=== PATIENT | female | born 1990 | race African-American/Black ===

== ENCOUNTER 2018-01-08 20:55 | Emergency (ER) | payer BC ==
[2018-01-08] MEDS: ACETAMINOPHEN 500 MG TAB PO (23:09)
[2018-01-08] MEDS: IBUPROFEN 600 MG TAB PO (23:09)
[2018-01-08] MEDS: LACTATED RINGER S IV (23:13)
[2018-01-08 23:31] LABS: ADD MAN DIFF? NO
[2018-01-08 23:40] LABS: WHITE BLOOD COUNT 5.9 10^3/ul (4.8-10.8)
[2018-01-08 23:40] LABS: ABNORMAL IP MESSAGE 1; BASOPHILS % 0.2 % (0.0-2.0); HEMATOCRIT 35.1 % (37.0-47.0); HEMOGLOBIN 11.2 g/dl (12.0-16.0); LYMPHOCYTES # 0.3 10^3/ul (0.8-2.9); LYMPHOCYTES % 5.6 % (15.0-51.0); MEAN CORPUSCULAR HEMOGLOBIN 22.7 pg (29.0-33.0); MEAN CORPUSCULAR HGB CONC 31.9 g/dl (32.0-37.0); MEAN CORPUSCULAR VOLUME 71.2 fl (82.0-101.0); MONOCYTE # 0.2 10^3/ul (0.3-0.9); MONOCYTES % 3.9 % (0.0-11.0); NEUTROPHIL # 5.3 10^3/ul (1.6-7.5); PLATELET COUNT 178 10^3/UL (140-415); RED BLOOD COUNT 4.93 10^6/ul (4.20-5.40); RED CELL DISTRIBUTION WIDTH 16.2 % (11.5-14.5)
[2018-01-08 23:50] LABS: POSITIVE DIFF @See below
[2018-01-08 23:55] LABS: INR 1.22; PROTIME 15.6 Sec (11.9-14.9); PT RATIO 1.2
[2018-01-08 23:56] LABS: PARTIAL THROMBOPLASTIN TIME 35.2 Sec (25.0-35.0)
[2018-01-08 23:58] LABS: ALANINE AMINOTRANSFERASE 29 IU/L (13-69); ALBUMIN/GLOBULIN RATIO 1.25; ALKALINE PHOSPHATASE 50 IU/L (42-121); ANION GAP 15 (8-16); ASPARTATE AMINO TRANSFERASE 30 IU/L (15-46); BILIRUBIN,INDIRECT 0.5 mg/dl (0-1.1); BILIRUBIN,TOTAL 0.5 mg/dl (0.2-1.3); BLOOD UREA NITROGEN 7 mg/dl (7-20); CALCIUM 8.8 mg/dl (8.4-10.2); CARBON DIOXIDE 24 mmol/L (21-31); CHLORIDE 102 mmol/L (97-110); CREATININE 0.87 mg/dl (0.44-1.00); GLUCOSE 111 mg/dl (70-220); POTASSIUM 3.5 mmol/L (3.5-5.1); SODIUM 137 mmol/L (135-144); TOTAL PROTEIN 7.2 g/dl (6.1-8.1)
[2018-01-09] MEDS: SOD CHLORIDE 0.9% 100 ML (00:12)
[2018-01-09] MEDS: IOHEXOL 300MG/ML 150 ML BTL (00:12)
[2018-01-09 00:19] LABS: TROPONIN-I < 0.012 ng/ml (0.00-0.12)
[2018-01-09 00:44] LABS: ADD UMIC YES; UR ASCORBIC ACID NEGATIVE (NEGATIVE); UR BILIRUBIN (Dip) NEGATIVE (NEGATIVE); UR BLOOD (Dip) 1+ mg/dL (NEGATIVE); UR CLARITY CLEAR (CLEAR); UR COLOR YELLOW (YELLOW); UR GLUCOSE (Dip) NEGATIVE (NEGATIVE); UR KETONES (Dip) TRACE mg/dL (NEGATIVE); UR LEUKOCYTE ESTERASE (Dip) TRACE Leu/ul (NEGATIVE); UR NITRITE (Dip) NEGATIVE (NEGATIVE); UR RBC 3 /HPF (0-5); UR TOTAL PROTEIN (Dip) NEGATIVE (NEGATIVE); UR UROBILINOGEN (Dip) NEGATIVE (NEGATIVE); UR WBC 2 /HPF (0-5)
[2018-01-09 01:00] LABS: LACTIC ACID 1.2 mmol/L (0.5-2.0)
[2018-01-09] MEDS: LIDOCAINE 2% (MDV) 20 ML INJ INJ (01:22)
== END 2018-01-09 01:46 | disposition home or self-care (01) ==
LOC: FTE 01-09 01:46
DX: N75.1 Abscess of Bartholin's gland (principal); R50.9 Fever, unspecified
CPT/HCPCS: 36415; 56420; 71045; 80053; 81001; 81025; 83605; 84484; 85025; 85610; 85730; 87040; 87086; 99284-25